=== PATIENT | male | born 1985 | race Caucasian/White ===

== ENCOUNTER 2021-11-30 20:14 | Emergency (ER) | payer BC, SELFPAY ==
--- NOTE | ~2021-11-30 | CT_ITS ---
EXAMINATION: CT abdomen pelvis wo con DATE: 11/30/2021 20:49 INDICATION: right flank pain X 5 HOURS/NO HX OF STONES TECHNIQUE: Computed tomography (CT) of the abdomen and pelvis was performed without intravenous contr ast. Automated exposure control and iterative reconstruction technique were employed. The dose-length product was 1350.08 mGy-cm. COMPARISON: None. FINDINGS: Lower thorax: Unremarkable Liver: Normal. Biliary/Gallbladder: Partially contracted, otherwise normal. No bile duct dilation. Pancreas: Fatty infiltrated. Spleen: Normal. Adrenals:No mass. Kidneys: Mild right perinephric stranding and hydronephrosis. 3 mm nonobstructive right lower pole ca lcification. GI tract: No small or large bowel dilation. Normal appendix. Mesentery/Peritoneum: No ascites, mass, or free air. Retroperitoneum: No mass. Pelvis: 2 x 4 mm ossification lodged in the distal portion of the right UVJ. Mild prostate calcificat ion. Soft Tissues: Soft tissues and body wall unremarkable. Bones: No acute osseous finding. IMPRESSION: 2 x 4 mm right UVJ stone causing mild obstructive uropathy. Reviewed, dictated and finalized at location K.
--- NOTE | ~2021-11-30 | XR_ITS ---
EXAM: XR abdomen/kub 1V DATE: 11/30/2021 20:50 HISTORY: right flank pain X 5 HOURS/NO HX OF STONES . COMPARISON: CT abdomen and pelvis, same date. FINDINGS: Clear lung bases. Punctate calcifications project over the first coccygeal element may rep resent the known right UPJ stone. Regional bones and soft tissues normal for age. IMPRESSION: Right UPJ stone, better seen by prior CT. Reviewed, dictated and finalized at location K.
[2021-11-30 20:18] VITALS: BP 159/94; PULSE 73; RESP 20; TEMP 36; O2SAT 98
--- NOTE | 2021-11-30 20:28 | ED.ABDPAIN ---
HPI - Abdominal Pain General Chief Complaint: Urogenital-Male Stated Complaint: Rt side pain History of Present Illness HPI narrative: pt developed pain in right flank about 1530 today which resolved after awhile and then returned about 30 minutes [employer] DEAD[employer]. Pt sasy it is sharp and radiates to right groing. Constant but waxing and waning in severity. now 02/21. nauseated but not vomiting. Urinary urgency but no frequency or burning. Pt has no prior medical history including kidney stones. Nothing worsens or improves pain. Related Data Allergies Allergy/AdvReac Type Severity Reaction Status Date / Time No Known Allergies Allergy Verified 11/30/21 20:25 Review of Systems Review of Systems: All systems reviewed & are unremarkable except as noted in HPI and below PMFSH Surgical History Surgical History Hx of LAS Social History Social History Smoking status: Never smoker Substance use: never Exam Const: General: healthy appearing Nutritional Appearance: well nourished Orientation/consciousness: patient oriented x3 Limitations: no limitations Other: uncomfortable pacing around room Eyes: Conjunctivae: conjunctivae normal EOM: EOMs intact bilaterally Neck: Neck: normal visual inspection Resp: Effort & Inspection: normal respiratory effort Cardio: Rate: regular rate Rhythm: regular rhythm GI: GI Palp: Yes Soft to palpation and Yes Tenderness to palpation present (GI) (right flank) Auscultation: normal bowel sounds : General: Yes CVA tenderness on the right Back/Spine/Pelvis: Back: CVA tenderness (right) Skin: General skin exam: normal color Rashes: no rashes Wounds: no wounds Neuro: General: patient oriented x3, moves all extremities and no focal motor deficits Speech: normal speech Extrem: General: normal to inspection and no clubbing, cyanosis or edema Psych: Mental Status: mental status grossly normal Affect: normal affect Attitude: cooperative Course Vital Signs Vital signs: Vital Signs Temperature 96.8 F L 11/30/21 20:18 Pulse Rate 73 11/30/21 20:18 Respiratory Rate 20 11/30/21 20:18 Blood Pressure 159/94 H 11/30/21 20:18 Pulse Oximetry 98 11/30/21 20:18 Oxygen Delivery Room Air 11/30/21 20:18 Temperature 96.8 F L 11/30/21 20:18 Pulse Rate 73 11/30/21 20:18 Respiratory Rate 20 11/30/21 20:18 Blood Pressure 159/94 H 11/30/21 20:18 Pulse Oximetry 98 11/30/21 20:18 Oxygen Delivery Room Air 11/30/21 20:18 MDM - Abdominal Pain Lab Data Result diagrams: 11/30/21 20:54 11/30/21 20:55 Labs: Lab Results 11/30/21 11/30/21 11/30/21 Range/Units 20:54 20:55 20:55 WBC 9.8 (4.8-10.8) K/mm3 RBC 5.38 (4.70-6.10) M/mm3 Hgb 15.4 (14.0-18.0) g/dL Hct 44.6 (40.0-54.0) % MCV 82.9 (78.0-102.0) fL MCH 28.6 (27.0-31.0) pg MCHC 34.5 (32.0-36.0) g/dL RDW 12.2 (11.6-14.4) % Plt Count 225 (150-420) K/mm3 MPV 10.9 (8.7-11.0) fl Immature Gran % (Auto) 0.5 H (0.0-0.0) % Neut % (Auto) 80.3 H (50.0-70.0) % Lymph % (Auto) 15.3 L (18.0-42.0) % [place] % (Auto) 3.4 (2.0-11.0) % Eos % (Auto) 0.2 L (1.0-6.0) % Baso % (Auto) 0.3 (0.0-1.0) % Lymph # (Auto) 1.50 (1.10-4.50) K/mm3 [place] # (Auto) 0.33 (0.10-0.90) K/mm3 Eos # (Auto) 0.02 (0.02-0.50) K/mm3 Baso # (Auto) 0.03 (0.00-0.10) K/mm3 Abs Immat Gran (auto) 0.05 H (0.00-0.00) K/mm3 Absolute Neuts (auto) 7.9 H (1.7-7.2) K/mm3 Absolute Nucleated RBC 0.00 (0.00-0.00) K/mm3 Nucleated RBC % 0.0 (0-0.0) % Sodium 140 (136-145) mmol/L Potassium 4.1 (3.5-5.1) mmol/L Chloride 104 (98-108) mmol/L Carbon Dioxide 24 (21-32) mmol/L Anion Gap 12 (8-16) mmol/L BUN 14 (7-18) mg/dL Creatinine 1.27 (0.70-1.30) mg/dL Estim Creat Clear Ca
[2021-11-30] MEDS: KETOROLAC 30 MG/ML VIAL (*BKC) IV PUSH (20:57)
[2021-11-30] MEDS: SODIUM CHLORIDE 0.9% IV 1,000 ML 999 ML IV CONT (20:57)
[2021-11-30 21:00] LABS: Add Urine Microscopic? YES; Appearance Urine Clear (Clear); Bilirubin Urine Negative (Negative); Blood Urine 3+ (Negative); Color Urine Yellow (Yellow); Glucose Urine UA Negative (Negative); Ketones Urine Negative (Negative); Leukocyte Esterase Ur Negative LEU/UL (Negative); Nitrate Urine Negative (Negative); Protein Urine Trace (Negative); Specific Grav Ur 1.015 (1.010-1.020); Urobilinogen Urine 0.2 mg/dL (0.2-1.0)
[2021-11-30 21:00] LABS: Basophils Absolute Auto 0.03 K/mm3 (0.00-0.10); Basophils Percent Auto 0.3 % (0.0-1.0); Eosinophils Absolute Auto 0.02 K/mm3 (0.02-0.50); Eosinophils Percent Auto 0.2 % (1.0-6.0); Hematocrit 44.6 % (40.0-54.0); Hemoglobin 15.4 g/dL (14.0-18.0); Immature Granulocyte Absolute 0.05 K/mm3 (0.00-0.00); Immature Granulocyte Percent A 0.5 % (0.0-0.0); Lymphocytes Percent Auto 15.3 % (18.0-42.0); Mean Corpuscular HGB Conc 34.5 g/dL (32.0-36.0); Mean Corpuscular Hemoglobin 28.6 pg (27.0-31.0); Mean Corpuscular Volume 82.9 fL (78.0-102.0); Mean Platelet Volume 10.9 fl (8.7-11.0); Monocytes Absolute Auto 0.33 K/mm3 (0.10-0.90); Monocytes Percent Auto 3.4 % (2.0-11.0); Neutrophils Absolute Auto 7.9 K/mm3 (1.7-7.2); Neutrophils Percent Auto 80.3 % (50.0-70.0); Platelet Count Result 225 K/mm3 (150-420); Red Blood Count 5.38 M/mm3 (4.70-6.10); Red Cell Distribution Width 12.2 % (11.6-14.4); White Blood Count 9.8 K/mm3 (4.8-10.8)
[2021-11-30] MEDS: ONDANSETRON INJ 4 MG/2 ML VIAL IV PUSH (21:01)
[2021-11-30 21:12] LABS: RBC Urine 21-50 /hpf (0-2); WBC Urine None seen /hpf (0-3)
[2021-11-30 21:13] LABS: Bacteria Urine Trace /hpf; Mucus Urine Moderate /lpf
[2021-11-30 21:20] LABS: Alanine Aminotransferase 44 U/L (16-63); Albumin Level 4.6 g/dL (3.4-5.0); Alkaline Phosphatase 69 U/L (46-116); Anion Gap 12 mmol/L (8-16); Aspartate Amino Transferase 21 U/L (15-37); Bilirubin,Total 0.4 mg/dL (0.00-1.00); Blood Urea Nitrogen 14 mg/dL (7-18); Calcium 9.2 mg/dL (8.5-10.1); Carbon Dioxide 24 mmol/L (21-32); Chloride 104 mmol/L (98-108); Estimated CRCL calculation 96 ml/min; Estimated Glomerular Filt Rate > 60; Glucose 157 mg/dL (70-99); Osmolality Calculated 293 mOsm/kg (285-295); Potassium 4.1 mmol/L (3.5-5.1); Sodium 140 mmol/L (136-145); Total Protein 7.6 g/dL (6.4-8.2)
[2021-11-30] MEDS: TAMSULOSIN HCL 0.4 MG CAPSULE PO (21:41)
[2021-11-30] MEDS: HYDROcodone/acetaminophen (*CRX) 5-325 MG TABLET 1 TAB PO (21:42)
[2021-11-30 22:22] VITALS: BP 136/79; PULSE 73; RESP 16; TEMP 36.6; O2SAT 96
== END 2021-11-30 22:27 | disposition home or self-care (01) ==
PROVIDERS: Emergency Provider Emergency Medicine; PCP Family Medicine
DX: N20.1 Calculus of ureter (principal)
CPT/HCPCS: 36415; 74018; 74176; 80053; 81001; 85025; 93005; 96361; 96374; 96375; 99284; A9270; J1885; J2405; J7030

== ENCOUNTER 2021-12-31 17:34 | Outpatient (CLI) | payer BC, SELFPAY | END 2021-12-31 17:35 | disposition home or self-care (01) | LOC: ANHLAB 17:36 | PROVIDERS: PCP Family Medicine; Visit Provider Surgery | DX: K42.9 Umbilical hernia without obstruction or gangrene (principal) | CPT/HCPCS: 36415; 86850; 86900; 86901 ==

== ENCOUNTER 2022-01-05 01:36 | Day surgery (SDC) | payer BC, SELFPAY ==
--- NOTE | 2021-12-30 14:02 | PC.NURSE ---
Report to the Outpatient Waiting Room, entrance under the green pavilion located off [facility], at time __07:30AM on date _[birth year] . OR Time: __09:30AM___. - You and your visitor will be asked to self-screen and do not enter if you have any COVID symptoms. - Only one visitor and NO children visitors are allowed at this time. - The patient visitor is requested to leave or wait in car when not with patient due to restrictions. - A mask is required within the hospital. Patients may have clear liquids (water, carbonated beverages, clear teas, apple juice) until 3 hours prior to surgery with a maximum of 20 ounces. - No food from midnight until time of surgery - CLEAR LIQUIDS UNTIL 6:30 Take the following medications with a SIP of water the morning of surgery: N/A Medications to discontinue per physician N/A Date to take last dose N/A Please no make-up, nail trinidadian, hairspray, perfume, deodorant, or body powder the day of surgery. No jewelry (including any body piercings) or valuables the day of surgery, leave them at home. Please take a shower or bath the night before, or the morning of, surgery with an antibacterial soap. Wear comfortable, loose fitting clothing. - Jewelry must be removed prior to entering the operating room. Rings and piercings that are not removed may be cut off. - The hospital will not accept responsibility for valuables. - Please leave all valuables, including medications, at home the day of surgery. If you are going home after surgery, a licensed regional company flatbed truck driver must drive you home. - NO public transportation without another adult. - We recommend that an adult stay with you for 24 hours following discharge. - We also recommend that you do not drive, make important decision, drink alcoholic beverages, or take any drugs that were not prescribed by your health care provider for at least 24 hours after your discharge time. Follow any additional instructions given to you from your surgeon. If you or anyone in your household have experienced Covid symptoms in the past week, please notify your surgeon or the nurse liaison at the phone number below for possible testing. Telephone instructions given to ____PATIENT and asked if any additional questions and then verbalized understanding. Patient advised to call surgeon office or pre surgery nurse liaison [phone] if any additional questions.
[2021-12-30 14:23] VITALS: BMI 31.6
--- NOTE | 2022-01-04 12:12 | P.PNAN_ITS ---
Anes - Initial Pre Proc Eval Procedure: Operation Date: 01/05/22 09:30 Proposed Procedures p Laparoscopic Umbilical Hernia Repair with Mesh, Davinci Assisted - Mina Mejía DO Date/Time: 01/04/22 12:12 Surgeon: Mina Mejía DO Pre Op Diagnosis: umbilical hernia Patient Data Age: 36 Gender: M Height: 1.85 m Weight: 109 kg Allergies Allergy/AdvReac Type Severity Reaction Status Date / Time No Known Allergies Allergy Verified 01/05/22 07:42 Home Medications Medication Instructions Recorded Confirmed Type [id number]-[id number] 250 1 tablet PRN PRN Headache 12/30/21 12/30/21 History mg-250 mg-65 mg tablet (Excedrin Migraine) Patient hx anesthesia problems: none Family hx anesthesia problems: none Results Review: All pre-operative results and documents have been reviewed as part of the pre- operative evaluation. [facility] Past Medical History Medical History (Updated 01/04/22 @ 12:12 by Rony Saenz MD) Kidney stone on right side Umbilical hernia without mention of obstruction or gangrene Surgical History Surgical History H/O vasectomy History of hydrocelectomy Hx of LASIK Hx of tonsillectomy Family History Family History Grandparent Lung cancer Social History Social History Smoking packs per day: 0.5 Smoking cigarettes per day: 10.0 Years smoked: 10 Smoking pack-years: 5.00 Smoking status: Former smoker Tobacco type: cigarettes Second hand tobacco smoke exposure: Yes (PARENTS) Alcohol intake: never Alcohol use details: social Substance use: never Substance use type: does not use Living arrangements: with family 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 Informed Consent: The patient's anesthetic plan and its attendant risks and benefits were discussed with the patient/family/POA. Questions were solicited and answers provided to the satisfaction of the patient/family/POA.
[2022-01-05] VITALS (9 sets, daily range): BP systolic 117–133; BP diastolic 75–89; PULSE 74–91; RESP 12–20; TEMP 36.1–36.3; O2SAT 94–100; BMI 31.8
[2022-01-05] MEDS: LACTATED RINGERS 1,000 ML 30 ML IV CONT ×2 (08:00→11:58)
[2022-01-05] MEDS: ACETAMINOPHEN 500 MG TABLET 1000 MG PO (08:04)
[2022-01-05] MEDS: KETOROLAC 15 MG/ML VIAL (*BKC) IV PUSH (08:04)
--- NOTE | 2022-01-05 09:26 | WPDHPUPDATE1 ---
History and Physical Update Update Date/Time: 01/05/22 09:26 History and Physical has been reviewed, including an updated exam of the patient. There are NO changes in the patient's condition. Risks, benefits, and alternatives have been discussed and questions answered. Patient agrees to proceed with procedure.
[2022-01-05] MEDS: ceFAZolin 2 GM/D5W 50 ML 2 GM/50 ML BAG IVPB (09:55)
--- NOTE | 2022-01-05 11:54 | W.PM.PROC2 ---
Procedure Note - Detailed Date of Procedure 01/05/22 Pre-op Diagnosis umbilical hernia Post-op Diagnosis Same Procedure Performed Laparoscopic Umbilical Hernia Repair with Mesh, da Yair assisted Surgeon Mina Mejía DO Anesthesia General and Local (Exparel) Indications This is a 36-year-old man who presented with an umbilical bulge that had been present for past 2-3 years. He has some occasional pain with activity. He recently had a CT scan done for a kidney stone in this did show evidence a 2 cm umbilical hernia defect. Discussions were made with the patient treatment options and decision was made to proceed with robotic assisted laparoscopic umbilical hernia repair with mesh. Findings Laparoscopic umbilical hernia repair was performed. The patient had evidence of a 2 cm umbilical hernia containing preperitoneal fat. A robotic transabdominal preperitoneal approach was utilized. Once a preperitoneal pocket was created, the hernia defect was closed using 0 Stratafix running absorbable suture. A 15 cm x [address] mesh was then placed within the preperitoneal pocket and secured to the abdominal wall at the 4 corners using 2-0 Vicryl simple interrupted sutures. No specimens were obtained for pathology. Description of Procedure Procedure as well as risks, benefits, and alternatives were discussed with the patient. Written consent was obtained and placed in chart prior to procedure. Patient was brought back to surgical suite. He was placed supine on operating table. Time-out was done to confirm patient and procedure. He was then intubated by the anesthesia department. A bump was placed under his left hip, and the bed was flexed slightly to extend the space between his costal margin and iliac crest. His abdomen was prepped and draped in sterile fashion using chlorhexidine prep. A 5 millimeter incision was made in the left upper quadrant, and a 5 millimeter Optiview trocar was advanced through the abdominal layers under direct visualization. Once inside the abdominal cavity, carbon dioxide insufflation was used to create a pneumoperitoneum. His abdomen was inspected. An 8 millimeter incision was made in the left lower quadrant, and an 8 millimeter robotic trocar was placed under direct visualization. Another 8 millimeter incision was made in the left lateral abdomen, and an 8 millimeter robotic trocar was placed under direct visualization. Exparel was infiltrated along the lateral abdominal samson to perform a transversus abdominis plane block bilaterally. The 5 millimeter port was removed, the incision was extended to 12 millimeters, and a 12 millimeter air seal port was placed under direct visualization. A Conrado-López cone was also used to place an 0-Vicryl simple interrupted suture at this trocar site. The robotic arms were brought up to the patient's bedside and secured to the ports. The camera and instruments were inserted, and I then moved over to the robotic console and took control of the camera and instruments. After careful thorough inspection of the abdominal cavity, I began my dissection at the hernia. A preperitoneal plane was created near the falciform ligament in the left upper quadrant using scissors with electrocautery. The preperitoneal pocket was extended far enough inferiorly to allow for mesh placement and then this dissection was carried out to the hernia sac and the hernia sac and preperitoneal fat was reduced. I then dissected far enough to the right lateral area to allow for the mesh placement. I then measured the hernia size. The hernia measured 2 cm. The fascia was closed using an 0-Stratafix running suture in a vertical fashion. A Ventralight ST 15 cm x 10 cm mesh was then placed within the preperitoneal pocket. This was oriented vertically with the mesh centered on the hernia defect. The mesh was then secured at the 4 corners and central portion using 2-0 Vicryl simple interrupted sutures. The preper
--- NOTE | 2022-01-05 12:27 | SUR.PHASEI ---
1227: Simple mask removed.
[2022-01-05] MEDS: oxyCODONE HCL (*CRX) 5 MG TAB IR PO (13:29)
== END 2022-01-05 14:21 | disposition home or self-care (01) ==
PROVIDERS: PCP Family Medicine; Visit Provider Surgery
PROC: (CPT 49652; principal; 2022-01-05 09:30)
DX: K42.9 Umbilical hernia without obstruction or gangrene (principal); Z87.891 Personal history of nicotine dependence
CPT/HCPCS: 49652; A9270; C1781; C9290; J0690; J1100; J1885; J2250; J2405; J2704; J2710; J3010; J7120